=== PATIENT | male | born 2000 | race Caucasian/White ===

== ENCOUNTER 2020-12-20 13:37 | Emergency (ER) | payer OTHER ==
[2020-12-20 14:02] VITALS: BP 119/64; PULSE 67; TEMP 98; BMI 20.9
[2020-12-20] MEDS ORDERED: KETOROLAC TROMETHAMINE 30 MG/1 ML VIAL IM ONE (14:55)
[2020-12-20] MEDS ORDERED: LIDOCAINE 5% TOPICAL PATCH TP ONE (14:56)
[2020-12-20] MEDS ORDERED: METHOCARBAMOL 500 MG TABLET PO ONE (14:56)
[2020-12-20] MEDS ORDERED: KETOROLAC TROMETHAMINE 30 MG/1 ML VIAL ONE (15:01)
[2020-12-20] MEDS ORDERED: LIDOCAINE 5% TOPICAL PATCH ONE (15:02)
[2020-12-20] MEDS ORDERED: METHOCARBAMOL 500 MG TABLET ONE (15:02)
[2020-12-20] MEDS ORDERED: LIDOCAINE PATCH REMOVAL MC SCH (22:00)
== END 2020-12-20 16:20 | disposition home or self-care (01) ==
LOC: JER 13:37
DX: M54.2 Cervicalgia (principal); V43.52XA Car driver injured in collision with other type car in traffic accident, initial encounter
CPT/HCPCS: 72125-TC; 99284-25